=== PATIENT | male | born 1985 | race Caucasian/White ===

== ENCOUNTER 2021-02-18 14:59 | Emergency (ER) | payer OTHER ==
[~2021-02-18 14:59] MED LIST: BACTRIM DS TAB1 EACH PO; IBUPROFEN400 MG PO; IBUPROFEN600 MG PO; KEFLEX CAP 500500 MG PO; KEFLEX500 MG PO; NORCO 5-325 TA1 EACH PO
[2021-02-18] MEDS ORDERED: BACTRIM DS TAB1 EACH PO (17:16)
[2021-02-18] MEDS ORDERED: CEPHALEXIN500 M1 PO (17:16)
== END 2021-02-18 20:20 | disposition home or self-care (01) ==
LOC: ER1 14:59
DX: L03.012 Cellulitis of left finger (principal); F17.210 Nicotine dependence, cigarettes, uncomplicated; Z90.89 Acquired absence of other organs
CPT/HCPCS: 73140; 96365; 96366; 96367; 99283; J2543; J3370; J7070

== ENCOUNTER 2021-02-20 14:48 | Emergency (ER) | payer OTHER ==
[~2021-02-20 14:48] MED LIST changes: +CEPHALEXIN500 M1 PO
== END 2021-02-20 16:39 | disposition left against medical advice (07) ==
LOC: ER1 14:48
DX: Z53.21 Procedure and treatment not carried out due to patient leaving prior to being seen by health care provider (principal)